=== PATIENT | female | born 1980 | race Caucasian/White ===

== ENCOUNTER 2017-04-01 16:53 | Emergency (ER) | payer OTHER ==
[~2017-04-01] VITALS: Ht 243.8 cm; Wt 56.2 kg
[2017-04-01 16:55] VITALS: BP 103/62
== END 2017-04-01 17:33 | disposition home or self-care (01) ==
LOC: ER 16:55
DX: H00.034 Abscess of left upper eyelid (principal); F17.200 Nicotine dependence, unspecified, uncomplicated
CPT/HCPCS: A4606; Z7610

== ENCOUNTER 2017-04-30 09:02 | Emergency (ER) | payer OTHER ==
[~2017-04-30] VITALS: Ht 152.4 cm; Wt 56.7 kg
[2017-04-30 09:05] VITALS: BP 109/73
[2017-04-30] MEDS ORDERED: IBUPROFEN 400 MG TABLET ONE (09:12)
[2017-04-30] MEDS ORDERED: IBUPROFEN 400 MG TABLET PO ONE (09:30)
== END 2017-04-30 09:48 | disposition home or self-care (01) ==
LOC: ER 09:04
DX: S60.221A Contusion of right hand, initial encounter (principal); F17.200 Nicotine dependence, unspecified, uncomplicated; X58.XXXA Exposure to other specified factors, initial encounter; Y93.89 Activity, other specified; Y92.89 Other specified places as the place of occurrence of the external cause; Y99.9 Unspecified external cause status
CPT/HCPCS: 73090-TC; 73130-TC; A4606; Z7610

== ENCOUNTER 2017-12-30 08:27 | Emergency (ER) | payer OTHER ==
[~2017-12-30] VITALS: Ht 152.4 cm; Wt 58.1 kg
--- NOTE | 2017-12-30 08:34 | NUR ---
A/OX4, AMBULATORY IN A STEADY GAIT TO ED, C/O RT SUPRAPUBIC PAIN RADIATING TO RT LOW BACK X 2 DAYS. NAD VSS RR EVEN AND UNLABORED. PENDING ER MD LEDBETTER
--- NOTE | 2017-12-30 09:01 | NUR ---
TEGAN, SERVER CASHIER AT BEDSIDE FOR BLOOD DRAW.
[2017-12-30 09:11] LABS: BASOPHILS # (AUTO) 0.1 /CMM (0.0-0.2); BASOPHILS % (AUTO) 0.8 % (0.0-2.0); EOSINOPHILS % (AUTO) 4.7 % (0.0-6.0); HEMATOCRIT 40 % (33-45); HEMOGLOBIN 13.4 g/dL (11.5-14.8); LYMPHOCYTES # (AUTO) 1.9 /CMM (0.8-4.8); MEAN CORPUSCULAR HGB CONC 34 g/dl (31.0-36.0); MEAN CORPUSCULAR VOLUME 87 fL (82-100); MONOCYTES # (AUTO) 0.4 /CMM (0.1-1.30); MONOCYTES % (AUTO) 6.7 % (2.0-12.0); NEUTROPHILS # (AUTO) 3.7 /CMM (1.8-8.9); NEUTROPHILS % (AUTO) 57.8 % (43.0-81.0); PLATELET COUNT (AUTO) 318 /CMM (150-450); RDW COEFFICIENT OF VARIATION 13.6 (11.5-15.0); RED BLOOD CELL COUNT(AUTO) 4.56 MIL/uL (4.0-5.2); WHITE BLOOD COUNT (AUTO) 6.4 K/uL (4.3-11.0)
[2017-12-30 09:14] LABS: APPEARANCE,URINE CLEAR (CLEAR); BILIRUBIN,URINE NEGATIVE (NEGATIVE); BLOOD, URINE TRACE Ery/uL (NEGATIVE); COLOR,URINE DARK YELLO (YELLOW); KETONES,URINE NEGATIVE (NEGATIVE); LEUKOCYTE ESTERASE ,URINE NEGATIVE (NEGATIVE); NITRITE, URINE NEGATIVE (NEGATIVE); PROTEIN,URINE NEGATIVE (NEGATIVE); UGLUCOSE NEGATIVE (NEGATIVE); UROBILINOGEN,URINE 0.2 EU/dL (0.2)
[2017-12-30 09:24] LABS: CALCIUM, SERUM 9.1 mg/dL (8.5-10.1); CREATININE 0.8 mg/dL (0.6-1.3); POTASSIUM 3.8 mmol/L (3.5-5.1)
[2017-12-30 09:29] LABS: ALBUMIN 3.7 g/dL (3.4-5.0); BACTERIA,URINE Rare /HPF (None Seen); BILIRUBIN,DIRECT 0.1 mg/dL (0.0-0.2); BILIRUBIN,TOTAL 0.3 mg/dL (0.2-1.0); RBC,URINE 0-2 /HPF (0-2); SQUAMOUS EPITHELIAL CELL,UR Rare /HPF (None Seen); TOTAL PROTEIN, SERUM 7.5 g/dL (6.4-8.2); WBC,URINE 0-2 /HPF (0-3)
--- NOTE | 2017-12-30 10:22 | NUR ---
Patient discharged to home in stable condition. Written and verbal after care instructions given. Patient verbalizes understanding of instruction.
[2017-12-30 10:23] VITALS: BP 102/61
== END 2017-12-30 10:23 | disposition home or self-care (01) ==
LOC: ER 08:28
DX: R10.2 Pelvic and perineal pain (principal); N83.209 Unspecified ovarian cyst, unspecified side; D25.9 Leiomyoma of uterus, unspecified; F17.200 Nicotine dependence, unspecified, uncomplicated; Z98.890 Other specified postprocedural states
CPT/HCPCS: 36415; 80048-TC; 80076-TC; 81000-TC; 83690-TC; 84703-TC; 85025-TC; A4606; Z7610

== ENCOUNTER 2022-02-21 21:44 | Emergency (ER) | payer OTHER ==
[~2022-02-21] VITALS: Ht 152.4 cm; Wt 61.2 kg
[2022-02-21 22:16] VITALS: BP 126/81
[2022-02-21] MEDS ORDERED: IBUPROFEN 400 MG TABLET PO ONE (22:30)
[2022-02-21] MEDS ORDERED: IBUPROFEN 400 MG TABLET ONE (22:30)
[2022-02-21] MEDS ORDERED: IBUP-1955 PO (23:12)
[2022-02-21] MEDS ORDERED: CYCL5TAB PO (23:12)
== END 2022-02-21 23:17 | disposition home or self-care (01) ==
LOC: ER 21:48
DX: M53.3 Sacrococcygeal disorders, not elsewhere classified (principal); Z87.42 Personal history of other diseases of the female genital tract; F17.200 Nicotine dependence, unspecified, uncomplicated
CPT/HCPCS: 72220-TC